=== PATIENT | male | born 1930 | race Caucasian/White ===

== ENCOUNTER 2018-07-16 21:30 | Inpatient (IN) | payer MEDICARE, OTHER ==
[2018-07-16 22:02] LABS: BEDSIDE GLUCOSE 259 MG/DL (83-110)
[2018-07-16 22:19] LABS: BASO # 0.1 10^3/uL (0.0-0.2); EOS # 0.1 10^3/uL (0.0-0.50); EOS % 2.5 % (0.0-3.0); HEMATOCRIT 35.9 % (42.0-52.0); HEMOGLOBIN 12.3 g/dl (13.5-17.5); IMMATURE GRANULOCYTE % 0.4 % (0-3.0); LYMPH # 1.1 10^3/uL (1.5-4.5); LYMPH % 21.1 % (24.0-44.0); MEAN CORPUSCULAR HEMOGLOBIN 31.9 pg (27.0-33.0); MEAN CORPUSCULAR HGB CONC 34.3 g/dl (32.0-36.5); MONO # 0.4 10^3/uL (0.0-0.8); MONO % 7.4 % (0.0-5.0); NEUTROPHILS # 3.6 10^3/uL (1.8-7.7); NEUTROPHILS % 67.6 % (36.0-66.0); PLATELET COUNT, AUTOMATED 136 10^3/uL (150-450); RED BLOOD COUNT 3.86 10^6/uL (4.30-6.10); RED CELL DISTRIBUTION WIDTH 13.3 % (11.5-14.5); WHITE BLOOD COUNT 5.3 10^3/uL (4.0-10.0)
[2018-07-16 22:31] LABS: LACTIC ACID SEPSIS PROTOCOL 1.6 MMOL/L (0.4-2.0)
[2018-07-16 22:56] LABS: ANION GAP 8 MEQ/L (8-16); BLOOD UREA NITROGEN 26 MG/DL (7-18); CALCIUM LEVEL 8.9 MG/DL (8.8-10.2); CARBON DIOXIDE LEVEL 30 MEQ/L (21-32); CHLORIDE LEVEL 104 MEQ/L (98-107); CPK CREATINE PHOSPHOKINASE 93 U/L (39-308); CREATININE FOR GFR 1.35 MG/DL (0.70-1.30); GLOMERULAR FILTRATION RATE 53.3 (>35); GLUCOSE, FASTING 235 MG/DL (70-100); POTASSIUM SERUM 4.2 MEQ/L (3.5-5.1); SODIUM LEVEL 142 MEQ/L (136-145); TROPONIN I < 0.02 NG/ML (< 0.10)
[2018-07-16 23:00] LABS: KETONE, URINE AUTO RFX NEGATIVE (NEGATIVE); LEUKOCYTE ESTERASE UR AUTO RFX NEGATIVE (NEGATIVE); MUCUS, URINE RFX SMALL (NEGATIVE); NITRITE, URINE AUTO RFX NEGATIVE (NEGATIVE); RBC, URINE AUTO RFX 3 /HPF (0-3); SQUAM EPITHELIAL CELL UR AURFX 0 /HPF (0-6); WBC, URINE AUTO RFX 1 /HPF (0-3)
[2018-07-16 23:02] LABS: CK-MB VALUE MASS 3.8 NG/ML (<3.6); MB/CK RELATIVE INDEX 4.08 (< OR =4)
[2018-07-17] MEDS ORDERED: PERCOCET 5MG/325MG TAB PO (00:45)
[2018-07-17] MEDS ORDERED: ACETAMINOPHEN TAB 650MG DOSE (2X325MG) PO (00:45)
[2018-07-17] MEDS ORDERED: BISACODYL 5 MG TAB PO (00:45)
[2018-07-17] MEDS ORDERED: ONDANSETRON 4 MG TAB (S0181) PO (00:45)
[2018-07-17 00:55] LABS: MAGNESIUM LEVEL 2.2 MG/DL (1.8-2.4)
[2018-07-17] MEDS ORDERED: ALBUTEROL 90 MCG/ACT 8GM HFA INHALER INH (02:15)
[2018-07-17] MEDS: LABETALOL 200 MG TAB PO ×3 (02:19→20:20)
[2018-07-17] MEDS: ADVAIR HFA 115/21MCG INHALER INH ×3 (02:20→21:15)
[2018-07-17] MEDS: DOCUSATE SODIUM 100 MG CAP PO ×2 (03:43→20:19)
[2018-07-17] MEDS: SIMVASTATIN 20 MG TAB PO ×2 (03:45→20:19)
[2018-07-17] MEDS ORDERED: GLUCAGON FOR INJ 1 MG VIAL (J1610) SC (07:30)
[2018-07-17] MEDS ORDERED: DEXTROSE 50% 50 ML SYRINGE IV (07:30)
[2018-07-17] MEDS ORDERED: GLUCOSE 4 GM CHEW TABLET PO (07:30)
[2018-07-17] MEDS: HumaLOG INSULIN (NovoLOG) PER UNIT SC ×4 (07:46→20:20)
[2018-07-17] MEDS: FOLIC ACID 1 MG TAB PO (07:47)
[2018-07-17] MEDS: IRBESARTAN 150 MG TAB PO (07:47)
[2018-07-17] MEDS: MULTIVITAMINS/MINERALS THERAP 1 TAB PO (07:47)
[2018-07-17] MEDS: PANTOPRAZOLE 40MG TAB (PROTONIX) PO (07:47)
[2018-07-17] MEDS: FUROSEMIDE 40 MG TAB PO (07:47)
[2018-07-17] MEDS: amLODIPine 5 MG TAB PO (07:47)
[2018-07-17] MEDS: ASPIRIN ENTERIC 325 MG TAB PO (07:48)
[2018-07-17] MEDS ORDERED: SITagliptin 50 MG TAB (JANUVIA) PO (09:00)
[2018-07-17] MEDS ORDERED: PROHANCE 279.3MG/ML 15ML VIAL (A9576) As Ordered (09:20)
[2018-07-17 12:28] LABS: BEDSIDE GLUCOSE 290 MG/DL (83-110)
[2018-07-17 12:28] LABS: HEMATOCRIT 36.6 % (42.0-52.0); HEMOGLOBIN 12.5 g/dl (13.5-17.5); MEAN CORPUSCULAR HEMOGLOBIN 31.9 pg (27.0-33.0); MEAN CORPUSCULAR HGB CONC 34.2 g/dl (32.0-36.5); MEAN CORPUSCULAR VOLUME 93.4 fl (80.0-96.0); PLATELET COUNT, AUTOMATED 143 10^3/uL (150-450); RED BLOOD COUNT 3.92 10^6/uL (4.30-6.10); RED CELL DISTRIBUTION WIDTH 13.2 % (11.5-14.5); WHITE BLOOD COUNT 5.5 10^3/uL (4.0-10.0)
[2018-07-17 12:56] LABS: ANION GAP 6 MEQ/L (8-16); BLOOD UREA NITROGEN 24 MG/DL (7-18); CALCIUM LEVEL 8.8 MG/DL (8.8-10.2); CARBON DIOXIDE LEVEL 32 MEQ/L (21-32); CHLORIDE LEVEL 103 MEQ/L (98-107); CPK CREATINE PHOSPHOKINASE 147 U/L (39-308); CREATININE FOR GFR 1.26 MG/DL (0.70-1.30); GLOMERULAR FILTRATION RATE 57.8 (>35); GLUCOSE, FASTING 269 MG/DL (70-100); MAGNESIUM LEVEL 2.2 MG/DL (1.8-2.4); MB/CK RELATIVE INDEX 2.04 (< OR =4); POTASSIUM SERUM 4.2 MEQ/L (3.5-5.1); SODIUM LEVEL 141 MEQ/L (136-145); TROPONIN I < 0.02 NG/ML (< 0.10)
[2018-07-17 16:48] LABS: BEDSIDE GLUCOSE 126 MG/DL (83-110)
[2018-07-17] MEDS: LEVEMIR (INSULIN DETEMIR) 1 UNITS/0.01ML SC (20:21)
[2018-07-17 21:20] LABS: BEDSIDE GLUCOSE 122 MG/DL (83-110)
[2018-07-18 05:28] LABS: HEMATOCRIT 35.6 % (42.0-52.0); HEMOGLOBIN 12.3 g/dl (13.5-17.5); MEAN CORPUSCULAR HEMOGLOBIN 31.4 pg (27.0-33.0); MEAN CORPUSCULAR HGB CONC 34.6 g/dl (32.0-36.5); MEAN CORPUSCULAR VOLUME 90.8 fl (80.0-96.0); PLATELET COUNT, AUTOMATED 148 10^3/uL (150-450); RED BLOOD COUNT 3.92 10^6/uL (4.30-6.10); RED CELL DISTRIBUTION WIDTH 13.1 % (11.5-14.5); WHITE BLOOD COUNT 6.4 10^3/uL (4.0-10.0)
[2018-07-18 05:38] LABS: ANION GAP 6 MEQ/L (8-16); BLOOD UREA NITROGEN 22 MG/DL (7-18); CALCIUM LEVEL 8.7 MG/DL (8.8-10.2); CARBON DIOXIDE LEVEL 31 MEQ/L (21-32); CHLORIDE LEVEL 106 MEQ/L (98-107); CREATININE FOR GFR 1.05 MG/DL (0.70-1.30); GLOMERULAR FILTRATION RATE > 60.0 (>35); GLUCOSE, FASTING 155 MG/DL (70-100); MAGNESIUM LEVEL 2.1 MG/DL (1.8-2.4); POTASSIUM SERUM 3.6 MEQ/L (3.5-5.1); SODIUM LEVEL 143 MEQ/L (136-145)
[2018-07-18 06:08] LABS: ESTIMATED AVERAGE GLUCOSE 131 MG/DL (60-110); HEMOGLOBIN A1c 6.2 %
[2018-07-18] MEDS: HumaLOG INSULIN (NovoLOG) PER UNIT SC (08:15)
[2018-07-18] MEDS: POTASSIUM CHLORIDE 10 MEQ SR TABLET PO (08:16)
[2018-07-18] MEDS: MULTIVITAMINS/MINERALS THERAP 1 TAB PO (08:16)
[2018-07-18] MEDS: ASPIRIN ENTERIC 325 MG TAB PO (08:16)
[2018-07-18] MEDS: amLODIPine 5 MG TAB PO (08:16)
[2018-07-18] MEDS: FOLIC ACID 1 MG TAB PO (08:16)
[2018-07-18] MEDS: PANTOPRAZOLE 40MG TAB (PROTONIX) PO (08:17)
[2018-07-18] MEDS: IRBESARTAN 150 MG TAB PO (08:17)
[2018-07-18] MEDS: FUROSEMIDE 40 MG TAB PO (08:17)
[2018-07-18] MEDS: LABETALOL 200 MG TAB PO (08:18)
[2018-07-18] MEDS: ADVAIR HFA 115/21MCG INHALER INH (08:30)
== END 2018-07-18 10:58 | disposition home or self-care (01) | DRG 312 ==
LOC: M ED 21:30 → M ED INP 07-17 00:42 → M MSPAV 07-17 02:07 → M PCU 07-17 10:00
DX: R55 Syncope and collapse (principal); I10 Essential (primary) hypertension; E11.9 Type 2 diabetes mellitus without complications; I25.10 Atherosclerotic heart disease of native coronary artery without angina pectoris; Z98.1 Arthrodesis status; Z95.1 Presence of aortocoronary bypass graft; Z90.5 Acquired absence of kidney; Z88.1 Allergy status to other antibiotic agents; Z79.84 Long term (current) use of oral hypoglycemic drugs; Z79.899 Other long term (current) drug therapy; Z79.82 Long term (current) use of aspirin; Z88.2 Allergy status to sulfonamides; K21.9 Gastro-esophageal reflux disease without esophagitis